=== PATIENT | male | born 1960 | race Caucasian/White ===

== ENCOUNTER → 2024-04-02 09:26 | Outpatient (REF) | payer OTHER, SELFPAY ==
[2024-04-02 10:12] LABS: % Basophils 0.6 % (0-2); % Eosinophils 3.6 % (0-6); % Immature Granulocytes 0.8 % (0-0.5); % Lymphocytes 28.8 % (20.5-51.1); % Monocytes 10.4 % (1.7-9.3); % Neutrophils 55.8 % (42.2-75.2); Absolute Eosinophils 0.2 10^3/uL (0-0.7); Absolute Immature Granulocytes 0.1 10^3/uL (0-0.05); Absolute Lymphocytes 1.8 10^3/uL (1.2-3.4); Absolute Monocytes 0.7 10^3/uL (0.1-0.6); Absolute Neutrophils 3.6 10^3/uL (1.4-6.5); Hematocrit 49.1 % (39.0-52.0); Hemoglobin 16.6 g/dL (13.0-18.0); Mean Corp Hgb Conc. 33.8 g/dL (33.0-37.0); Mean Corpuscular Hgb 30.7 pg (27.0-31.0); Mean Corpuscular Volume 90.9 fL (80.0-94.0); Mean Platelet Volume 10.3 fL (7.4-10.4); Nucleated Red Blood Cells % 0 % (-); Platelet Count 180 10^3/uL (130-400); Red Cell Dist. Width 13.4 % (11.5-14.5); White Blood Cell Count 6.4 10^3/uL (4.8-10.8)
[2024-04-02 10:57] LABS: ALT (SGPT) 17 U/L (0-50); AST (SGOT) 22 U/L (17-59); Albumin 4.5 g/dl (3.5-5.0); Alkaline Phosphatase 55 U/L (38-126); Blood Urea Nitrogen 30 mg/dl (9-20); Calcium 9.8 mg/dl (8.4-10.2); Carbon Dioxide 19 mmol/L (22-30); Chloride 105 mmol/L (98-107); Glucose 147 mg/dl (70-99); HDL Cholesterol 36 mg/dl; LDL Cholesterol, Calculated 90 mg/dl; Potassium 4.4 mmol/L (3.5-5.1); Sodium 138 mmol/L (135-145); Total Cholesterol 176 mg/dl (50-199); Total Protein 7.1 g/dl (6.3-8.2); Triglyceride 254 mg/dl (10-149); Very Low Density Lipoprotein 50 mg/dl (0-30); eGFR > 60.00
== END ==
LOC: REG 09:26
PROVIDERS: ATTENDING PHYSICIAN Internal Medicine Endocrinology, Diabetes & Metabolism; FAMILY PHYSICIAN Family Medicine; REFERRING PHYSICIAN Specialist
DX: E11.21 Type 2 diabetes mellitus with diabetic nephropathy (principal); E11.22 Type 2 diabetes mellitus with diabetic chronic kidney disease; N18.2 Chronic kidney disease, stage 2 (mild); E78.2 Mixed hyperlipidemia
CPT/HCPCS: 36415; 80053; 80061; 83036; 85025

== ENCOUNTER → 2024-09-14 09:17 | Outpatient (REF) | payer OTHER, SELFPAY ==
[2024-09-14 10:14] LABS: % Basophils 0.5 % (0-2); % Eosinophils 2.9 % (0-6); % Immature Granulocytes 1.1 % (0-0.5); % Lymphocytes 30.4 % (20.5-51.1); % Monocytes 9.7 % (1.7-9.3); % Neutrophils 55.4 % (42.2-75.2); Absolute Eosinophils 0.2 10^3/uL (0-0.7); Absolute Immature Granulocytes 0.1 10^3/uL (0-0.05); Absolute Lymphocytes 2.3 10^3/uL (1.2-3.4); Absolute Monocytes 0.7 10^3/uL (0.1-0.6); Absolute Neutrophils 4.2 10^3/uL (1.4-6.5); Hematocrit 46.7 % (39.0-52.0); Hemoglobin 16.2 g/dL (13.0-18.0); Mean Corp Hgb Conc. 34.7 g/dL (33.0-37.0); Mean Corpuscular Hgb 31.8 pg (27.0-31.0); Mean Corpuscular Volume 91.7 fL (80.0-94.0); Mean Platelet Volume 10.5 fL (7.4-10.4); Nucleated Red Blood Cells % 0 % (-); Platelet Count 206 10^3/uL (130-400); Red Blood Cell Count 5.09 10^6/uL (4.70-6.10); Red Cell Dist. Width 12.9 % (11.5-14.5); White Blood Cell Count 7.5 10^3/uL (4.8-10.8)
[2024-09-14 10:28] LABS: Erythrocyte Sed Rate 7 mm/hour (0-20)
[2024-09-14 10:42] LABS: ALT (SGPT) 39 U/L (0-50); AST (SGOT) 30 U/L (17-59); Albumin 4.5 g/dl (3.5-5.0); Alkaline Phosphatase 83 U/L (38-126); Blood Urea Nitrogen 20 mg/dl (9-20); Calcium 9.7 mg/dl (8.4-10.2); Carbon Dioxide 17 mmol/L (22-30); Chloride 107 mmol/L (98-107); Glucose 199 mg/dl (70-99); HDL Cholesterol 41 mg/dl; Potassium 4.5 mmol/L (3.5-5.1); Sodium 141 mmol/L (135-145); Total Bilirubin 0.6 mg/dl (0.2-1.3); Total Cholesterol 162 mg/dl (50-199); eGFR > 60.00
[2024-09-14 10:48] LABS: C-Reactive Protein < 5.00 mg/L (0.0-10.00); Triglyceride 462 mg/dl (10-149)
[2024-09-14 10:51] LABS: Amylase 86 U/L (30-110); Lipase 218 U/L (23-300)
[2024-09-14 11:09] LABS: LDL Cholesterol, Direct 61 mg/dl
[2024-09-14 11:26] LABS: Glycohemoglobin (HgbA1c) 7.6 % (4.0-5.6)
[2024-09-14 11:36] LABS: Microalbumin, Random Urine 1.1 mg/dl (0.6-1.7); Microalbumin/creatinine Ratio 13.6 mg/g
== END ==
LOC: REG 09:17
PROVIDERS: ATTENDING PHYSICIAN Internal Medicine; FAMILY PHYSICIAN Internal Medicine Endocrinology, Diabetes & Metabolism; REFERRING PHYSICIAN Family Medicine
DX: L40.50 Arthropathic psoriasis, unspecified (principal); Z51.81 Encounter for therapeutic drug level monitoring; E11.21 Type 2 diabetes mellitus with diabetic nephropathy; R80.9 Proteinuria, unspecified; E78.2 Mixed hyperlipidemia; E11.22 Type 2 diabetes mellitus with diabetic chronic kidney disease
CPT/HCPCS: 36415; 80053; 80061; 82043; 82150; 82570; 83036; 83690; 83721; 85025; 85652; 86140

== ENCOUNTER → 2025-02-11 11:33 | Outpatient (REF) | payer OTHER, SELFPAY ==
[2025-02-11 12:23] LABS: % Basophils 0.7 % (0-2); % Eosinophils 2.2 % (0-6); % Immature Granulocytes 1.2 % (0-0.5); % Lymphocytes 34.4 % (20.5-51.1); % Monocytes 10.5 % (1.7-9.3); Absolute Eosinophils 0.1 10^3/uL (0-0.7); Absolute Immature Granulocytes 0.1 10^3/uL (0-0.05); Absolute Monocytes 0.6 10^3/uL (0.1-0.6); Hemoglobin 16.6 g/dL (13.0-18.0); Mean Corp Hgb Conc. 35.3 g/dL (33.0-37.0); Mean Corpuscular Hgb 32.3 pg (27.0-31.0); Mean Corpuscular Volume 91.4 fL (80.0-94.0); Mean Platelet Volume 10.1 fL (7.4-10.4); Nucleated Red Blood Cells % 0 % (-); Platelet Count 163 10^3/uL (130-400); Red Blood Cell Count 5.14 10^6/uL (4.70-6.10); Red Cell Dist. Width 12.8 % (11.5-14.5); White Blood Cell Count 5.9 10^3/uL (4.8-10.8)
[2025-02-11 12:39] LABS: Erythrocyte Sed Rate 8 mm/hour (0-20)
[2025-02-11 12:47] LABS: ALT (SGPT) 32 U/L (0-50); AST (SGOT) 22 U/L (17-59); Albumin 4.4 g/dl (3.5-5.0); Alkaline Phosphatase 67 U/L (38-126); Blood Urea Nitrogen 22 mg/dl (9-20); Calcium 9.6 mg/dl (8.4-10.2); Carbon Dioxide 26 mmol/L (22-30); Chloride 106 mmol/L (98-107); Glucose 196 mg/dl (70-99); HDL Cholesterol 38 mg/dl; LDL Cholesterol, Calculated 45 mg/dl; Potassium 4.5 mmol/L (3.5-5.1); Sodium 142 mmol/L (135-145); Total Cholesterol 161 mg/dl (50-199); Total Protein 6.8 g/dl (6.3-8.2); Triglyceride 394 mg/dl (10-149); Uric Acid 7.3 mg/dl (3.5-8.5); Very Low Density Lipoprotein 78 mg/dl (0-30); eGFR > 60.00
[2025-02-11 12:50] LABS: C-Reactive Protein < 5.00 mg/L (0.0-10.00)
== END ==
LOC: REG 11:33
PROVIDERS: ATTENDING PHYSICIAN Internal Medicine; FAMILY PHYSICIAN Family Medicine; REFERRING PHYSICIAN Internal Medicine Cardiovascular Disease
DX: L40.50 Arthropathic psoriasis, unspecified (principal); Z51.81 Encounter for therapeutic drug level monitoring; E78.2 Mixed hyperlipidemia; E11.22 Type 2 diabetes mellitus with diabetic chronic kidney disease; N18.2 Chronic kidney disease, stage 2 (mild); E11.21 Type 2 diabetes mellitus with diabetic nephropathy
CPT/HCPCS: 36415; 80053; 80061; 84550; 85025; 85652; 86140

== ENCOUNTER 2025-04-07 22:49 | Inpatient (IN) | payer OTHER, SELFPAY ==
[2025-04-07 18:35] VITALS: BP 144/84
--- NOTE | 2025-04-07 19:23 | ED.GENMED ---
History of Present Illness
General
Chief Complaint: Abdominal Pain
Source: patient
Time Seen by Provider: 04/07/25 19:10
History of Present Illness
History of Present Illness:
64-year-old presents to the emergency room complaining of pain in the abdomen for the past 5 days. He has diffuse pain but perhaps worse in the upper abdomen. Mild nausea no vomiting. He may have had some loose stools but no significant change in
bowels. Patient states this feels similar to when he had pancreatitis a couple years ago. At that time the patient was drinking 6 or 7 drinks a day. Currently he is drinking 1 or 2 beers a day. Nothing seems to make the pain better or worse. He
denies any fever or chills.
Past History
Past History
ED Past Medical History: CAD, GERD, HTN, Hypercholesterolemia and NIDDM
ED Past Surgical History: Appendectomy, Orthopedic and Other (hernia)
Patient has exhibited threatening behavior?: No
PSI?: No
Social History
Tobacco: Non-smoker
Alcohol: Daily
Drug: None
Personal:
Living: with family
Phy Exam
Physical Exam
Physical Exam:
General: Awake, Alert, Oriented X3. No acute distress.
Vitals: unremarkable
Head: Atraumatic
Eyes: Pupils equal, EOMI
Throat: Airway intact, no exudates
Neck: Trachea midline
Lungs: Clear and equal b/l
Heart: Regular rate, no murmurs
Abd: Soft, tenderness to palpation in the suprapubic region as well as the epigastrium and right upper quadrant, No pulsatile mass
Neuro: Nonfocal
Skin: Warm, dry, no rash
Extremities: pulses equal b/l, no edema
Course
Orders/Labs/Results
Orders:
Orders
04/07/25 19:19
Ketorolac [Toradol] 15 mg IV NOW STA
04/07/25 19:20
Lactated Ringers [Lr] 1,000 ml IV BOLUS
04/07/25 19:21
CT Abd/Pel (IV only)-DH only Urgent
Comment:
Reason For Exam: epigastric abd pain
04/07/25 19:35
B-Hydroxybutyrate Urgent
Comment: ADD ON
Complete Blood Count/With Diff Urgent
Comprehensive Metabolic Panel Urgent
Lipase Urgent
04/07/25 20:02
Urinalysis Reflex To Culture Urgent
Date Specimen was Collected: 04/07/25
Time Specimen was Collected: 20:01
Urine Microscopic Reflex Cult Urgent
04/07/25 20:41
Venous Blood Gas Urgent
%Oxygen/Room Air: ra
04/07/25 21:05
0.9% Sodium Chloride 1000 ml [Nss] 1,000 ml IV BOLUS
0.9% Sodium Chloride 1000 ml [Nss] 1,000 ml IV BOLUS
04/07/25 21:06
Bedside Glucose- Treatment Q1H
IV Insert/Care/Rem.- Treatment PRN
04/07/25 21:08
Add On- LAB Urgent
Tests Added?: beta hydroxybuterate
04/07/25 21:15
Basic Metabolic Panel Q2H
04/07/25 21:41
Reg Insulin 100 Units/100 ml [Novolin R Insulin Infusion] 100 units in 100 ml IV NOW
04/07/25 22:00
KCl 20 Meq/D5.45%Sodchl 1000ML [D5/0.45%NSS with KCL 20 MEQ] 20 meq in 1,000 ml IV 200 mls/hr
04/07/25 23:15
Basic Metabolic Panel Q2H
04/08/25 01:15
Basic Metabolic Panel Q2H
Abnormal Lab Results
04/07/25 04/07/25 04/07/25
19:35 20:02 20:41
WBC 11.7 H 10^3/uL
(4.8-10.8)
RBC 4.26 L 10^6/uL
(4.70-6.10)
MCV 95.5 H fL
(80.0-94.0)
MCH 31.7 H pg
(27.0-31.0)
Abs Immat Gran (auto) 0.2 H 10^3/uL
(0-0.05)
Absolute Neuts (auto) 8.8 H 10^3/uL
(1.4-6.5)
Absolute Monos (auto) 1.0 H 10^3/uL
(0.1-0.6)
Immature Gran % 1.6 H %
(0-0.5)
Lymphocytes % 13.5 L %
(20.5-51.1)
VBG pH 7.29 L
(7.32-7.43)
VBG pCO2 25 L mmHg
(35-48)
VBG pO2 128 H mmHg
(30-50)
VBG HCO3 12.0 L mmol/L
(22-27)
Sodium 133 L mmol/L
(135-145)
Potassium 5.3 H mmol/L
(3.5-5.1)
Carbon Dioxide 6 L* mmol/L
(22-30)
Glucose 269 H mg/dl
(70-99)
Total Bilirubin 1.5 H mg/dl
(0.2-1.3)
Lipase 3073 H* U/L
(23-300)
Urine Ketones 3+ A
(Negative)
Ur Occult Blood Reflex 1+ A
(Negative)
Urine RBC 3-6 A /HPF
(0-2)
Urine Bacteria (Reflex) Few A
(Negative)
Urine Glucose 4+ A
(Negative)
Urine Albumin (Reflex) 2+ A
(Neg - Trace)
POC Glucose
04/07/25
21:24
WBC
RBC
MCV
MCH
Abs Immat Gran (auto)
Absolute Neuts (auto)
Absolute Monos (auto)
Immature Gran %
Lymphocytes %
VBG pH
VBG pCO2
VBG pO2
VBG HCO3
Sodium
Potassium
Carbon Dioxide
Glucose
Total Bilirubin
Lipase
Urine Ketones
Ur Occult Blood Reflex
Urine RBC
Urine Bacteria (Reflex)
Urine Glucose
Urine Albumin (Reflex)
POC Glucose 236 H mg/dl
(70-99)
04/07/25 19:35
Vital Signs
Initial and Last Documented VS:
Initial Vital Signs
Temp Pulse Resp BP Pulse Ox
97.6 F 89 20 144/84 98
04/07/25 18:35 04/07/25 18:35 04/07/25 18:35 04/07/25 18:35 04/07/25 18:35
Last Documented Vital Signs
Temp Pulse Resp BP Pulse Ox
97.6 F 89 20 112/64 94
04/07/25 18:35 04/07/25 18:35 04/07/25 18:35 04/07/25 20:11 04/07/25 20:45
MDM/Problems Addressed
Differential Diagnosis Includes:
Pancreatitis, acute cholecystitis, gastritis
MDM/Problems Addressed:
Patient presents with fairly diffuse abdominal pain, nausea. He does not look toxic. However his labs are significantly abnormal. A CBC report was delayed because the patient has severe Evie EMEA. Chemistries show mildly elevated potassium of
5.3, markedly low bicarb at 6. His anion gap is 21. Leukos is elevated at 269 but not as high as 1 might expect. Lipase is elevated at 3073 I would not expect pancreatitis to cause these significant chemistry abnormalities particularly given the
patient does not appear acutely ill. Suspect there is a component of DKA despite his relatively low glucose. I was able to look up the patient's chart on [facility]. It does appear that he takes Jardiance. This would coincide with DKA at a relatively
low glucose. Patient also informing that he stopped taking his Repatha.
Chronic conditions affecting care: DM, HTN and Other (Hypertriglyceridemia)
*Radiology
Radiology exam reviewed: radiology read reviewed
*Pulse Oximetry
Patient hypoxic: no
*Critical Care Note
Total Time (30-74mins, 75-104mins- exclusive of procedures): 44 min
comment:
Critical care statement: A total of 44 minutes of critical care time was provided for this patient. This includes management of unstable vital signs, evaluation of the patient at bedside, reviewing the patient's pertinent medical records, discussion
with consultants, review of old EKGs and review of pertinent medical records. This time with separate from time utilized to perform the aforementioned documented procedures
ED Attending Note
-
Portions of this chart may have been created with voice recognition software.� Occasional wrong word or��sound alike� substitutions may have occurred due to the inherent limitations of voice recognition software.
Discharge Plan
Departure
Patient Disposition: Admit
Date of Disposition: 04/07/25
Time of Disposition: 21:54
Admit to: ICU
Presentation/result/management discussed w/ accepting MD/DO: Hospitalist
Condition: Serious
Discharge Problem:
DKA (diabetic ketoacidosis), Hyperlipemia, Pancreatitis, acute
Prescriptions:
No Action
allopurinol 300 MG tablet
300 mg PO DAILY
aspirin 81 MG tablet,delayed release (DR/EC)
81 mg PO HS Qty: 0 0RF
Rx Instructions:
RESUME WHEN BID DOSING IS D/C
multivitamin Tablet
1 tab PO DAILY
ezetimibe [Zetia] 10 mg Tablet
10 mg PO DAILY
omega-3 fatty acids-fish oil 684-1,200 mg Capsule,Delayed Release(Dr/Ec)
1 cap PO DAILY
ustekinumab [Stelara] 90 mg/mL Syringe
90 mg SC Q12W
omeprazole 20 mg Capsule,Delayed Release(Dr/Ec)
20 mg PO QPM
sodium bicarbonate 650 mg Tablet
325 mg PO TID 14 Days Qty: 21 0RF
insulin glargine [Lantus Solostar U-100 Insulin] 100 unit/mL (3 mL) insulin pen
8 unit SC HS 30 Days Qty: 2.4 0RF
lisinopril 20 mg tablet
20 mg PO DAILY
celecoxib 100 mg capsule
100 mg PO BID
tadalafil 20 mg tablet
20 mg PO PRN PRN (Reason: Erectile Dysfunction)
Jardiance 25 mg tablet
25 mg PO DAILY
Repatha SureClick 140 mg/mL pen injector
140 mg SC Q2W
Ozempic 1 mg/dose (4 mg/3 mL) pen injector
1 mg SC WEEKLY
Referrals:
Buddy Scott DO [Family Provider] -
Interventions
Interventions:
*General Assessment Last Done: 04/07/25 18:35
Discharge Date and Time
Print Language: TURKISH
[2025-04-07] MEDS: TORADOL 15 MG IV (19:56)
[2025-04-07] MEDS: LR 1000 IV (19:57)
[2025-04-07 20:11] VITALS: BP 112/64
[2025-04-07 20:12] LABS: Urine Albumin 2+ (Neg - Trace); Urine Bilirubin Negative (Negative); Urine Character Clear (Clear); Urine Color Yellow; Urine Glucose 4+ (Negative); Urine Ketone 3+ (Negative); Urine Leukocyte Negative (Negative); Urine Nitrite Negative (Negative); Urine Occult Blood 1+ (Negative); Urine Specific Gravity 1.015 (<1.030); Urine Urobilinogen Negative (Neg - 1+)
[2025-04-07 20:16] LABS: ALT (SGPT) 19 U/L (0-50); AST (SGOT) 30 U/L (17-59); Albumin 4.4 g/dl (3.5-5.0); Alkaline Phosphatase 65 U/L (38-126); Blood Urea Nitrogen 13 mg/dl (9-20); Calcium 8.5 mg/dl (8.4-10.2); Carbon Dioxide 6 mmol/L (22-30); Chloride 106 mmol/L (98-107); Glucose 269 mg/dl (70-99); Potassium 5.3 mmol/L (3.5-5.1); Sodium 133 mmol/L (135-145); Total Bilirubin 1.5 mg/dl (0.2-1.3); Total Protein 7.6 g/dl (6.3-8.2); eGFR > 60.00
[2025-04-07 20:27] LABS: Lipase 3073 U/L (23-300)
[2025-04-07 20:38] LABS: Urine Bacteria Few (Negative); Urine Squamous Cell 0-2 /LPF (Few); Urine White Cell 0-2 /HPF (0-5)
[2025-04-07 20:49] LABS: Venous Blood Gas B.E. -12.5 mmol/L (-4 to +4); Venous Blood Gas O2 Sat % 98.6 %; Venous Blood Gas pCO2 25 mmHg (35-48); Venous Blood Gas pH 7.29 (7.32-7.43); Venous Blood Gas pO2 128 mmHg (30-50)
[2025-04-07 21:22] LABS: Hematocrit 40.7 % (39.0-52.0); Mean Corpuscular Volume 95.5 fL (80.0-94.0); Red Blood Cell Count 4.26 10^6/uL (4.70-6.10); White Blood Cell Count 11.7 10^3/uL (4.8-10.8)
[2025-04-07 21:23] LABS: Mean Corp Hgb Conc. 33.2 g/dL (33.0-37.0); Mean Corpuscular Hgb 31.7 pg (27.0-31.0); Red Cell Dist. Width 14.4 % (11.5-14.5)
[2025-04-07 21:24] LABS: Hemoglobin 13.5 g/dL (13.0-18.0)
[2025-04-07 21:24] LABS: Glucose - Point of Care 236 mg/dl (70-99)
[2025-04-07] MEDS: NSS 1000 IV (21:31)
[2025-04-07 21:38] VITALS: BMI 33.9
[2025-04-07 21:42] LABS: % Basophils 0.4 % (0-2); % Immature Granulocytes 1.6 % (0-0.5); % Lymphocytes 13.5 % (20.5-51.1); % Monocytes 8.5 % (1.7-9.3); Absolute Basophils 0.1 10^3/uL (0-0.2); Absolute Eosinophils 0.1 10^3/uL (0-0.7); Absolute Immature Granulocytes 0.2 10^3/uL (0-0.05); Absolute Lymphocytes 1.6 10^3/uL (1.2-3.4); Absolute Neutrophils 8.8 10^3/uL (1.4-6.5); Nucleated Red Blood Cells % 0 % (-)
[2025-04-07 22:00] VITALS: BP 123/70
[2025-04-07] MEDS: NOVOLIN R INSULIN INFUSION 100 IV (22:04)
[2025-04-07] MEDS: D5/0.45%NSS with KCL 20 MEQ IV (22:12)
--- NOTE | 2025-04-07 22:39 | HPS.HSE ---
Family Physician
-
Family Physician: Buddy Scott
Chief Complaint
-
Abdominal Pain
History of Present Illness
Patient is 64 y/o male past medical history of coronary artery disease, hypertension, hyperlipidemia, diabetes mellitus, psoriatic arthritis and obstructive sleep apnea who presents with abdominal pain. Patient reports increasing abdominal
discomfort over the past 5 days. He describes diffuse abdominal discomfort slightly worse in the upper abdomen. He reports nausea, but no vomiting. He reports symptoms are similar to when he had pancreatitis a few years ago. Review of those
records indicate patient was drinking 6 beers daily and also had significantly elevated triglyceride levels. Patient states he is drinking less but still drinking. He also reports he stopped his Repatha about 6 weeks ago, as well as his Ozempic.
He denies fevers, sweats or chills.
Medical History
Past Medical History
Past Medical History: Reports Other
Additional Past Medical History:
Coronary Artery Disease s/p Stent
Diabetes Mellitus, Type II
Essential Hypertension
Hyperlipidemia
Psoriatic Arthritis
Obstructive Sleep Apnea
Past Surgical History: Reports Other
Additional Past Surgical History:
Umbilical Hernia Repair
Left inguinal Hernia Repair
Appendectomy
Left Kidney Stone Extraction
Right Partial knee Replacement
Left Ankle Surgery
Social History
Tobacco: Former Smoker
Alcohol: Daily (3 beers)
Family History
Family History: Not pertinent
Allergies / Home Medications
Allergies reflects when Allergies were last updated in [facility].
Home Medications with original date entered in [facility]
Allergy/Medication List:
Allergies
Allergy/AdvReac Type Severity Reaction Status Date / Time
lactose Allergy INTOLERANT Verified 04/07/25 21:36
latex Allergy Rash Verified 04/07/25 18:35
Gfxhaae-VPQ-LtB Reductase Allergy SEE BELOW Verified 04/07/25 18:35
Inhibitor
[Wdgkpsc-Yby-Lmx Reductase
Inhibitor]
Home Medications
allopurinol 300 mg tablet 150 mg PO DAILY Gout 09/20/10
omeprazole 20 mg capsule,delayed release 20 mg PO QPM Gastrointestinal Issue 08/07/23
ustekinumab 90 mg/mL subcutaneous syringe (Stelara) 90 mg SC Q12W PSORIATIC ARTHRITIS 08/07/23
celecoxib 100 mg capsule 100 mg PO BID 04/07/25
empagliflozin 25 mg tablet (Jardiance) 25 mg PO DAILY 04/07/25
lisinopril 5 mg tablet 5 mg PO DAILY 04/07/25
tadalafil 20 mg tablet 20 mg PO PRN PRN Erectile Dysfunction 04/07/25
Review of Systems
-
History Source: Patient
A 12 point ROS was completed and negative except as noted: Yes
Constitutional: Denies Fever or Chills
Respiratory: Denies Cough or Trouble Breathing
Cardiac: Denies Chest Pain or Palpitations
Abdomen/GI: Reports Abdominal Pain and Nausea; Denies Vomiting, Diarrhea or Constipated
Physical Exam
Vital Signs
Vital Signs
Temp Pulse Resp BP Pulse Ox
97.6 F 89 20 112/64 94
04/07/25 18:35 04/07/25 18:35 04/07/25 18:35 04/07/25 20:11 04/07/25 20:45
Physical Exam
General: Comfortable and Conversant
HEENT: Anicteric and Moist mucous membranes
Respiratory: Clear and Non Labored Respirations
Cardiac: S1/S2 and Regular Rhythm
GI: Soft and Tender (Mild epigastric without rebound or guarding)
Rectal: Deferred by Provider
Musculoskeletal: No Clubbing, No Cyanosis and No Edema
Skin: Warm and Dry
Neuro: Awake, Alert, Oriented and Nonfocal/grossly intact
Psych: Calm
Laboratory Results
-
04/07/25 19:35
Laboratory Results
Laboratory Tests
04/07/25
19:35
Sodium 133 L
Potassium 5.3 H
Chloride 106
Carbon Dioxide 6 L*
BUN 13
Creatinine 0.9
Glucose 269 H
Total Bilirubin 1.5 mg/dl (0.2-1.3) H 04/07/25 19:35
AST 30 U/L (17-59) 04/07/25 19:35
ALT 19 U/L (0-50) 04/07/25 19:35
Alkaline Phosphatase 65 U/L (38-126) 04/07/25 19:35
Lipase 3073 U/L (23-300) H* 04/07/25 19:35
Data Reviewed
-
CT Scan: Report Reviewed by me
Lab Data: Labs Reviewed by me
Old Records: Reviewed
Impression/Plan
-
Diabetic Ketoacidosis, likely triggered by Pancreatitis
-Admit to ICU on insulin drip
-Monitor BMP and bedside glucose
-Continue IVFs
-Hold Jardiance
Pancreatitis, suspect related to elevated triglycerides as patient stopped Repatha about 6 weeks ago
-Check Triglyceride Level
-Continue NPO/IVFs
Coronary Artery Disease s/p Stent in 2019
-Resume low dose aspirin
Essential Hypertension
-Continue lisinopril
Hyperlipidemia
-Patient is intolerant to statin
-Stopped Repatha about 6 weeks ago
Psoriatic Arthritis
-Patient maintained on Stelara as outpatient
Obstructive Sleep Apnea
-Continue home CPAP
DVT proph: Lovenox
Code Status: Full Code
--- NOTE | 2025-04-07 22:41 | W.PN.UPDATE ---
Update Note
Progress Note Update
Patient seen in conjunction with ASSET ADMINISTRATOR. I agree defined/M0. I concur with assessment plan listed otherwise.
Briefly, this is a 84-year-old with past medical history significant for type 2 diabetes, GERD, hypertension, hyperlipidemia, recurrent pancreatitis thought to be secondary to hypertriglyceridemia and alcohol use who presents to the emergency
department with 4 days of abdominal pain. He denies vomiting. He reports mild nausea. He states he is overall able to tolerate p.o. On questioning patient did endorse to drinking approximately 3 bottles of beer in the evenings this week. He
states is less than his usual amount. He reports that he he stopped taking the Repatha about 6 weeks ago because he felt that he was taking too many medications. He also reports some noncompliance with his insulin regimen having stopped taking
injectables recently. He does not check his blood glucose regularly. Eventually came to the emergency department due to abdominal pain. He denies any diarrhea. He denies any fevers or chills.
In the emergency department he was afebrile, blood pressure was 112/64 with a pulse rate of 89 and was satting 100% on room air.
CBC was unremarkable.
Electrolyte close notable for anion gap acidosis with a bicarb of 6, BUN and creatinine were completely normal. Lipase was elevated at 3000, LFTs were otherwise normal. Blood glucose was 269.
CT of the abdomen pelvis consistent with acute pancreatitis without complications including no evidence of fluid collection or necrosis
Assessment and plan
Patient presenting with abdominal pain and found to have acute pancreatitis. DKA. This is likely secondary to noncompliance with both DAYANA triglyceride medication as well as disease alcohol cessation. He is also not entirely compliant with his
diabetic regimen. In the past he had triglycerides over 3000 which was treated with insulin drip and eventually being placed on Repatha.
DKA - pancreatitis as likely etiology
- admit to icu
- npo except meds/ice chips
- DKA protocol, currently needs D5 1/2 NS + 20 Kcl
- bmp q 4 hours
- fsg q 1 hour
Pancreatitis - suspect secondary to hypertriglyceridemia and possibly etoh
- check triglycerides
- npo as above
- pain control
- IV fluids
- monitor trig levels, goal is < 1000, may need to continue insulin gtt at high rate for goal
ZENOBIA
- home cpap
DVT PPX - lovenox sq
Code status - Full code
[2025-04-07 22:50] LABS: Triglycerides > 2625 mg/dl (10-149)
[2025-04-07] MEDS: D5/0.45%NSS with KCL 20 MEQ 1000 IV (22:56)
[2025-04-07 23:16] LABS: Glucose - Point of Care 185 mg/dl (70-99)
[2025-04-08] VITALS (22 sets, daily range): BP systolic 110–141; BP diastolic 55–87; BMI 33.5
[2025-04-08 00:32] LABS: Glucose - Point of Care 185 mg/dl (70-99)
[2025-04-08] MEDS: DILAUDID 0.25 MG IV ×3 (01:10→22:25)
[2025-04-08 01:25] LABS: Glucose - Point of Care 195 mg/dl (70-99)
--- NOTE | 2025-04-08 01:48 | PTCARENOTE ---
patient received from ER, with pancreatitis and DKA, BG 185 and on 2 units insulin gtt. patient offers mild complaints of abdominal pain, diffuse throughout abdomen, 5/10
patient is continent of bowel and bladder, ast x 1 to bathroom, no difficulty voiding.
NPO currentlly, IVF and insulin gtt running without issue,
new IV placed in RFA, as patient has L AC and keeps occluding with bending his arm to use his phone
hourly bg checks per protocol
[2025-04-08 02:44] LABS: Glucose - Point of Care 193 mg/dl (70-99)
[2025-04-08 03:50] LABS: Hematocrit 39.7 % (39.0-52.0); Hemoglobin 15.2 g/dL (13.0-18.0); Mean Corp Hgb Conc. 38.3 g/dL (33.0-37.0); Mean Corpuscular Hgb 35.4 pg (27.0-31.0); Mean Corpuscular Volume 92.5 fL (80.0-94.0); Mean Platelet Volume 11.4 fL (7.4-10.4); Platelet Count 118 10^3/uL (130-400); Red Blood Cell Count 4.29 10^6/uL (4.70-6.10); Red Cell Dist. Width 13.3 % (11.5-14.5); White Blood Cell Count 10.8 10^3/uL (4.8-10.8)
[2025-04-08 03:50] LABS: Glucose - Point of Care 217 mg/dl (70-99)
[2025-04-08 04:19] LABS: ALT (SGPT) 14 U/L (0-50); AST (SGOT) 17 U/L (17-59); Albumin 3.5 g/dl (3.5-5.0); Alkaline Phosphatase 45 U/L (38-126); Direct Bilirubin 0.2 mg/dl (0.0-0.4); Total Bilirubin 0.9 mg/dl (0.2-1.3); Total Protein 6.1 g/dl (6.3-8.2)
--- NOTE | 2025-04-08 04:19 | PTCARENOTE ---
patient resting comfortably, insulin gtt increased to 3 for bg of 218, patient finally able to sleep ,prn pain medication given for 'shooting abdominal pain' -
[2025-04-08 04:20] LABS: Blood Urea Nitrogen 10 mg/dl (9-20); Calcium 8.2 mg/dl (8.4-10.2); Carbon Dioxide 13 mmol/L (22-30); Chloride 110 mmol/L (98-107); Estimated Creatinine Clearance 108 ml/min; Glucose 184 mg/dl (70-99); Potassium 4.2 mmol/L (3.5-5.1); Sodium 138 mmol/L (135-145); eGFR > 60.00
[2025-04-08] MEDS: D5/0.45%NSS with KCL 20 MEQ 1000 IV ×5 (04:28→22:24)
[2025-04-08 04:34] LABS: Lipase 3209 U/L (23-300)
[2025-04-08 04:42] LABS: Glucose - Point of Care 215 mg/dl (70-99)
[2025-04-08 04:47] LABS: Triglycerides > 2625 mg/dl (10-149)
[2025-04-08 06:03] LABS: Glucose - Point of Care 161 mg/dl (70-99)
[2025-04-08 06:42] LABS: Glucose - Point of Care 179 mg/dl (70-99)
--- NOTE | 2025-04-08 07:12 | CON.INTV ---
Addendum entered and electronically signed by Artie Lira MD 04/09/25 14:08:
04/10.
- Patient has been transitioned to subcu insulin per primary team
- Patient transferring out of ICU
- [facility] [employer] service will sign off, please call as needed
Addendum entered and electronically signed by Artie Lira MD 04/08/25 09:36:
- Patient still appears dry on exam with dry oral mucosa and dark urine
- Give another bolus of Ringer lactate 1 L stat, continue D5 with half-normal saline and potassium at 200 cc an hour
- Patient no longer nauseous, will allow taking p.o. water and ice chips
Original Note:
Consultation
Consultation Request
Date/Time Consultation Requested: 04/07/2025
Date/Time Consultation Performed: 04/08/2025
Requesting Provider: Ivet Alexander
Performing Provider: Artie Lira
Reason for Consultation: DKA
Medical History
-
Chief Complaint: Abdominal pain
History of Present Illness:
Patient is a 64-year-old gentleman with known history of diabetes as well as pancreatitis in the past related to hypertriglyceridemia. Patient also has a history of alcohol use. He presents with last few days of abdominal pain subsequently worse
with nausea but without any vomiting. Workup in the emergency room showed metabolic acidosis consistent with DKA as well as significantly elevated lipase suggestive of pancreatitis. Patient was aggressively volume resuscitated followed by
initiation of insulin infusion and was admitted to ICU. [facility] [employer] consult was requested for further input.
Past Medical History: Reports Other
Additional Past Medical History:
Coronary Artery Disease s/p Stent
Diabetes Mellitus, Type II
Essential Hypertension
Hyperlipidemia
Psoriatic Arthritis
Obstructive Sleep Apnea
Past Surgical History: Reports Other
Additional Past Surgical History:
Umbilical Hernia Repair
Left inguinal Hernia Repair
Appendectomy
Left Kidney Stone Extraction
Right Partial knee Replacement
Left Ankle Surgery
Social History
Tobacco: Former Smoker
Alcohol: Daily (3 beers)
Family History
Family History: Not pertinent
Allergies / Home Medications
Allergies
Allergy/AdvReac Type Severity Reaction Status Date / Time
lactose Allergy INTOLERANT Verified 04/07/25 21:36
latex Allergy Rash Verified 04/07/25 18:35
Nrcsvrm-UNF-JtN Reductase Allergy SEE BELOW Verified 04/07/25 18:35
Inhibitor
[Jsdehyf-Jkj-Nnv Reductase
Inhibitor]
Home Medications
�Medication �Instructions �Recorded �Confirmed �Last Taken �Type
allopurinol 300 mg tablet 150 mg PO DAILY Gout 09/20/10 04/07/25 10/03/19 08:00 History
omeprazole 20 mg capsule,delayed 20 mg PO QPM Gastrointestinal Issue 08/07/23 04/07/25 Unknown History
release
ustekinumab 90 mg/mL subcutaneous 90 mg SC Q12W PSORIATIC ARTHRITIS 08/07/23 04/07/25 Unknown History
syringe (Stelara)
celecoxib 100 mg capsule 100 mg PO BID 04/07/25 04/07/25 Unknown History
empagliflozin 25 mg tablet 25 mg PO DAILY 04/07/25 04/07/25 Unknown History
(Jardiance)
lisinopril 5 mg tablet 5 mg PO DAILY 04/07/25 04/07/25 Unknown History
tadalafil 20 mg tablet 20 mg PO PRN PRN Erectile 04/07/25 04/07/25 Unknown History
Dysfunction
Review of Systems
-
Hematologic/Lymphatic: Other (All 14 systems reviewed and negative except as stated above in the history of present illness. Feels thirsty)
Vitals / Labs / Diagnostic Testing
Vital Signs
Temp Pulse Resp BP Pulse Ox
97.6 F 68 27 130/74 93
04/07/25 18:35 04/08/25 06:00 04/08/25 06:00 04/08/25 06:00 04/08/25 06:00
Lab Data
04/08/25 03:30
Diagnostic Testing:
Physical Exam
-
HEENT: Normocephalic and Other (Somewhat dry oral mucosa)
Cardiovascular: S1/S2
Respiratory: Clear
GI: Soft
Neurology: Awake and Alert
Skin: Warm
General: Comfortable
Assessment
-
#1. Acute Pancreatitis, due to hypertriglyceridemia. Significantly elevated lipase on admission, more than 3000 along with evidence of pancreatitis on CT scan with symptoms
- Continue IV fluids D5/half-normal with potassium along with insulin infusion, currently IV fluids at 200 mL/h
- Follow-up triglyceride levels in a.m.
- Continue insulin infusion until triglycerides at least below 1000
- Counseled patient regarding need for insulin as well as antihypertriglyceridemic medications long-term to prevent these episodes
#2. DKA with h/o DM
- VBG 7.29, 25.
- Serum bicarb improving from 6, most recently is 13. Potassium at 4.2. BUN/creatinine unremarkable. Triglyceride noted to be more than 2600
- Continue D5 half-normal with potassium along with insulin infusion
- Serial POCT, BMP, magnesium and phosphorus
- Even if anion gap closes, will continue insulin infusion with dextrose until triglycerides are below thousand
#3. h/o CAD s/p PCI in 2019
- No chest pain reported
-Patient reports being allergic to statins
-Does not take aspirin at home
-Agreeable to take aspirin 81 mg.
#4. HTN
#5. Hypertriglyceridemia.
- Counseled patient that excellent blood sugar control with insulin therapy as well as ant-ihypertriglyceridemic agents are critical to control elevated triglycerides to prevent future attacks of pancreatitis.
- Patient seems skeptical about efficacy of these therapies
#6. h/o ZENOBIA
- Home CPAP
DVT prophylaxis Lovenox
Critical Care time 62 mins -- The patient is admitted for acute critical illness for the treatment of vital organ failure and/or prevention of further life-threatening conditions. Total care includes time spent in review of history, physical exam,
medications, hemodynamic/ventilator parameters, laboratory data, imaging and discussion with house staff, pharmacy, respiratory therapy, gastrointestinal technician, and nursing.
Data:
CT Abd/Pelvis 03/2025: CT findings compatible with pancreatitis involving the head of the pancreas. No evidence for macroscopic pancreatic necrosis. No evidence of a focal collection.
Thickening of the wall the second portion of the duodenum which is likely reactive duodenitis.
Coronary artery calcifications are seen. Please correlate with symptoms of and risk factors for coronary artery disease, with further workup as clinically appropriate.
Fatty infiltration of the liver.
Two 2 mm nephroliths in the lower pole the left kidney. No evidence for ureteral calculus.
Nuclear stress test 03/2022: Not suggestive of ischemia
Cardiac Cath 2019: 1. Successful stenting of the proximal to mid LAD with a 3.0 x 38 mm Xience Lynne stent that was postdilated with a 3.5 mm noncompliant balloon to 16 javad in the proximal and midportion of the stent and to 12 javad on the distal
portion of the stent
2. The mid circumflex stenosis was not hemodynamically significant with the iFR measuring serially at 1.02
3. Preserved LV systolic function
--- NOTE | 2025-04-08 07:20 | W.PN.HOSP.TC ---
Addendum entered and electronically signed by Maryanne Magaña MD 04/08/25 12:34:
I saw and evaluated the patient independently. I reviewed the resident�s note and agree with findings and plan as documented by Dr. Fritz.
GENERAL: well developed, well nourished, male in no apparent distress
HEENT: NC/AT--no O2 requirements
HEART: regular rate and rhythm, +S1, +S2
LUNGS : clear to auscultation bilaterally
ABDOM: soft, nontender, nondistended, + bowel sounds
EXT: no cyanosis, clubbing, or edema
NEUROLOGIC: grossly intact
acute AGAP metabolic acidosis--multifactorial due to Diabetic Ketoacidosis (likely triggered by Pancreatitis), alcoholic ketoacidosis, pancreatitis--cont ICU--apprec float tender--cont insulin drip, adjust IVF (include dextrose if needed)--NPO except
water--hourly accuchecks, Q4H BNPs--agree with holding Jardiance--follow AGAP--check HGB U0H--ayn need insulin--states he stopped his Ozempic
Acute Pancreatitis, suspect related to elevated triglycerides as patient stopped Repatha about 6 weeks ago--cont insulin (high doses may help reduce triglycerides)--cont aggressive IVF--NPO--pain control
HLD--with elevated triglycerides--needs to restart Repatha--not on statins--will need low fat, diabetic diet when allowed to take PO
ETOH use--admits to 3 beers daily--cont MSAS--no signs of withdrawal
Coronary Artery Disease s/p Stent in 2019--Resume low dose aspirin
Essential Hypertension--Continue lisinopril
Psoriatic Arthritis--Patient maintained on Stelara as outpatient
Obstructive Sleep Apnea--Continue home CPAP
DVT proph-- Lovenox
Code Status-- Full Code
Original Note:
Today's Communication/Plan
-
.
Assessment / Plan
Assessment / Plan
Assessment:
64yo M pmh CAD, HTN, HLD, NIDDM, GERD, psoriatic arthritis, ZENOBIA who was admitted for recurrent pancreatitis and DKA. Pt reports stopping repatha and his ozempic 6 weeks ago. Lipase 3000 elevated, AG (21) metabolic acidosis
Plan:
DKA
NIDDM
AGMA
- likely secondary to pancreatitis and poor compliance w NIDDM regimen
- BHB 7.3
- u/a: ketonuria
- NPO
- DKA protocol
- BMP q4h
- accuchecks q1h
Recurrent pancreatitis
- likely secondary to hypertriglyceridemia vs etoh use
- triglcyerides >2625
- pain control
- antiemetics
- IVF
Alcohol use disorder
- cessation counseling
ZENOBIA
- home CPAP
Psoriatic arthritis
- hold stelara
GERD
- cont ppi
HTN
- cont home lisinopril
Gout
- cont home allopurinol
Diet: NPO
DVT ppx: lovenox
Code status: FULL CODE
Anticipated Discharge: > 48 hours
Subjective/Interval History
-
Date of Service: April 08, 2025
Pt is a 64yo M [facility] CAD, HTN, HLD, NIDDM, GERD, psoriatic arthritis, ZENOBIA who presented to [facility] ED for abdominal pain x5 days. Pain is diffuse, but worse in the upper abdomen. States pain is similar to when he had pancreatitis a couple of years ago.
Pt reports stopping repatha and his ozempic 6 weeks ago. Lipase 3000 elevated, AG (21) metabolic acidosis, TG>2625
Objective Data
-
Labs:
Laboratory Results
04/07/25 04/07/25 04/07/25
19:35 21:15 23:15
WBC 11.7 H
Hgb 13.5
Hct 40.7
Plt Count
Sodium 133 L Cancelled Cancelled
Potassium 5.3 H Cancelled Cancelled
Chloride 106 Cancelled Cancelled
Carbon Dioxide 6 L* Cancelled Cancelled
BUN 13 Cancelled Cancelled
Creatinine 0.9 Cancelled Cancelled
Glucose 269 H Cancelled Cancelled
Calcium 8.5 Cancelled Cancelled
Total Bilirubin 1.5 H
AST 30
ALT 19
Alkaline Phosphatase 65
04/08/25 04/08/25 04/08/25
01:15 03:30 03:30
WBC 10.8
Hgb 15.2
Hct 39.7
Plt Count 118 L
Sodium Cancelled 138 Cancelled
Potassium Cancelled 4.2
Chloride Cancelled
Carbon Dioxide Cancelled
BUN Cancelled
Creatinine Cancelled
Glucose Cancelled
Calcium Cancelled
Total Bilirubin
AST
ALT
Alkaline Phosphatase
04/08/25 04/08/25 04/08/25
03:30 03:30 03:30
WBC
Hgb
Hct
Plt Count
Sodium
Potassium Cancelled
Chloride 110 H Cancelled
Carbon Dioxide 13 L* Cancelled
BUN 10
Creatinine
Glucose
Calcium
Total Bilirubin
AST
ALT
Alkaline Phosphatase
04/08/25 04/08/25 04/08/25
03:30 03:30 03:30
WBC
Hgb
Hct
Plt Count
Sodium
Potassium
Chloride
Carbon Dioxide
BUN Cancelled
Creatinine 0.8 Cancelled
Glucose 184 H Cancelled
Calcium 8.2 L
Total Bilirubin
AST
ALT
Alkaline Phosphatase
04/08/25 04/08/25 04/08/25
03:30 08:00 12:00
WBC
Hgb
Hct
Plt Count
Sodium Pending Pending
Potassium Pending Pending
Chloride Pending Pending
Carbon Dioxide Pending Pending
BUN Pending Pending
Creatinine Pending Pending
Glucose Pending Pending
Calcium Cancelled Pending Pending
Total Bilirubin 0.9
AST 17
ALT 14
Alkaline Phosphatase 45
04/08/25 04/08/25
16:00 20:00
WBC
Hgb
Hct
Plt Count
Sodium Pending Pending
Potassium Pending Pending
Chloride Pending Pending
Carbon Dioxide Pending Pending
BUN Pending Pending
Creatinine Pending Pending
Glucose Pending Pending
Calcium Pending Pending
Total Bilirubin
AST
ALT
Alkaline Phosphatase
Vital Signs:
Vital Signs
Temp Pulse Resp BP Pulse Ox
97.6 F 75 20 137/72 97
04/07/25 18:35 04/08/25 07:18 04/08/25 07:18 04/08/25 07:18 04/08/25 07:18
I&O
04/07/25 04/08/25 04/09/25
06:59 06:59 06:59
Intake Total /
Output Total 1410 / 1410
Balance -1410 / -1410
Review of Systems
-
History Source: Patient
Constitutional: Reports No Symptoms
EENT: Reports No Symptoms Reported
Respiratory: Reports No Symptoms
Cardiac: Reports No Symptoms
Abdomen/GI: Reports Abdominal Pain (mild)
Musculoskeletal: Reports No Symptoms
Skin: Reports No Symptoms
Neuro: Reports No Symptoms
Physical Exam
-
General: Well Developed, Well Nourished and Comfortable
HEENT: Normocephalic and Atraumatic
Respiratory: Clear to Auscultation and Non Labored Respirations
Cardiac: Regular Rhythm and S1/S2
GI: Soft, Nondistended, Normal Bowel Sounds and Tender (epigastric)
Musculoskeletal: No Clubbing, No Cyanosis and No Edema
Skin: Warm
Neuro: Awake, Alert and Oriented
Psych: Calm
[2025-04-08 07:32] LABS: Glucose - Point of Care 175 mg/dl (70-99)
--- NOTE | 2025-04-08 07:36 | PTCARENOTE ---
Updated assessment, vital signs ongoing and as documented. Follow up technical specialist consult. IVF, NPO, continue accu data and lab trends as ordered. Noted prolonged times for results secondary to lab value abnormalities. VSS, patient with dull
abdominal pain, c/c of hunger, and ambulating room/voids standing. Will continue lab trends, present Gap for 0300 15/corrected with albumin 16.3. Continue to follow up with technical specialist team.
[2025-04-08] MEDS: ASPIR LOW (ENTERIC COATED) 81 MG PO (08:17)
[2025-04-08] MEDS: ZESTRIL 5 MG PO (08:18)
[2025-04-08] MEDS: ZYLOPRIM 150 MG PO (08:18)
[2025-04-08 09:30] LABS: Glucose - Point of Care 203 mg/dl (70-99)
--- NOTE | 2025-04-08 09:57 | CM ---
Addendum entered by Darlene Arias 04/11/25 15:27:
Per patient no MC and did not want to complete IMM on 04/09/25.
Original Note:
Patient seen at bedside in ICU. Patient stated that he was living with family and that he has a CPAP machine at home that he does use. Patient stated that he has been reducing his medications and he did not want to take so much. Patient denied
issues with cost of medication. Patient declined referral for alcohol treatment stating he would reduce his alcohol intake to zero and that was that. Patient indicated that he was driving and that his PCP recently retired and he was reassigned in
the group. Patient most recently saw PCP one month ago. Patient uses the [facility] in [place]. Patient indicated that he was independent of ADL's and IADL's. CM will continue to follow for discharge planning needs.
Plan;home with VN vs home with no needs.
[2025-04-08] MEDS: LR 1000 IV (10:02)
[2025-04-08 11:23] LABS: Glucose - Point of Care 169 mg/dl (70-99)
--- NOTE | 2025-04-08 11:26 | PTCARENOTE ---
Update with wildlife manager and critical care team thru am. Patient ambulating to bathroom and chair supervision only. No c/c at this time. Accu data trends ongoing. Insulin presently 169 on 2unints and hour. IVF bolus as ordered, IVF as ordered. Will
follow up 1200 labs as ordered. Update difficulty with lab specimens as noted. Now adding oral H2O intake. Patient tolerating and thankful to be able to drink. Watching tv and sleeping when undisturbed. Update daughter at [facility] as per patient
request. Continue hourly rounds will follow up with critical care team.
[2025-04-08 12:22] LABS: Glucose - Point of Care 164 mg/dl (70-99)
[2025-04-08 13:08] LABS: Blood Urea Nitrogen 7 mg/dl (9-20); Carbon Dioxide 17 mmol/L (22-30); Chloride 109 mmol/L (98-107); Estimated Creatinine Clearance 123 ml/min; Glucose 157 mg/dl (70-99); Potassium 4.6 mmol/L (3.5-5.1); Sodium 136 mmol/L (135-145); Triglycerides 1895 mg/dl (10-149); eGFR > 60.00
[2025-04-08 15:00] LABS: Glycohemoglobin (HgbA1c) 9.7 % (4.0-5.6)
[2025-04-08 15:17] LABS: Glucose - Point of Care 183 mg/dl (70-99)
[2025-04-08 16:55] LABS: Glucose - Point of Care 175 mg/dl (70-99)
[2025-04-08 17:15] LABS: Blood Urea Nitrogen 5 mg/dl (9-20); Calcium 8.3 mg/dl (8.4-10.2); Carbon Dioxide 15 mmol/L (22-30); Chloride 110 mmol/L (98-107); Estimated Creatinine Clearance > 125 ml/min; Glucose 168 mg/dl (70-99); Potassium 4.5 mmol/L (3.5-5.1); Sodium 134 mmol/L (135-145); eGFR > 60.00
--- NOTE | 2025-04-08 17:29 | PTCARENOTE ---
Update [facility] team. IVF and insulin presently at 2units/hr. May continue at 2 hour accu data readings, labs follow up as ordered. Review Ion Gap 9 present labs as noted and reviewed. Update with patient and . Continues to ambulate room,
bathroom privileges, Call francisco in use as needed. No c/c to offer.
[2025-04-08] MEDS: PROTONIX 40 MG PO (17:54)
[2025-04-08] MEDS: LOVENOX 40 MG SC (17:54)
[2025-04-08 20:27] LABS: Glucose - Point of Care 185 mg/dl (70-99)
[2025-04-08 20:42] LABS: Blood Urea Nitrogen 5 mg/dl (9-20); Calcium 8.5 mg/dl (8.4-10.2); Carbon Dioxide 17 mmol/L (22-30); Chloride 109 mmol/L (98-107); Estimated Creatinine Clearance 123 ml/min; Glucose 175 mg/dl (70-99); Potassium 4.4 mmol/L (3.5-5.1); Sodium 135 mmol/L (135-145); eGFR > 60.00
[2025-04-08 22:16] LABS: Glucose - Point of Care 180 mg/dl (70-99)
--- NOTE | 2025-04-09 00:05 | PTCARENOTE ---
Pt alert/oriented/cooperative,ambulating to bathroom with minimal assist. PRN dilaudid for pain as needed. Afebrile. NSR on monitor. Pulses palpable, no edema. IV line flushed/patent. Continues on IVF and insulin gtt as ordered, q2h accu checks.
Room air (CPAP machine when asleep). NPO with sips of water/ice chips. Voids in bathroom. Will monitor
[2025-04-09 00:27] LABS: Glucose - Point of Care 191 mg/dl (70-99)
[2025-04-09 02:13] LABS: Glucose - Point of Care 165 mg/dl (70-99)
[2025-04-09] MEDS: D5/0.45%NSS with KCL 20 MEQ 1000 IV ×2 (03:37→08:18)
[2025-04-09] MEDS: NOVOLIN R INSULIN INFUSION 100 IV (03:38)
[2025-04-09 03:50] VITALS: BP 122/84
[2025-04-09] MEDS: DILAUDID 0.25 MG IV (03:54)
--- NOTE | 2025-04-09 04:00 | PTCARENOTE ---
No change in previous assessment. Labs sent and pending. Will monitor
[2025-04-09 04:19] LABS: Hematocrit 37.8 % (39.0-52.0); Hemoglobin 13.9 g/dL (13.0-18.0); Mean Corp Hgb Conc. 36.8 g/dL (33.0-37.0); Mean Corpuscular Hgb 33.6 pg (27.0-31.0); Mean Corpuscular Volume 91.3 fL (80.0-94.0); Mean Platelet Volume 11.2 fL (7.4-10.4); Platelet Count 130 10^3/uL (130-400); Red Blood Cell Count 4.14 10^6/uL (4.70-6.10); Red Cell Dist. Width 13.5 % (11.5-14.5); White Blood Cell Count 8.1 10^3/uL (4.8-10.8)
[2025-04-09 04:34] LABS: Blood Urea Nitrogen 4 mg/dl (9-20); Calcium 8.4 mg/dl (8.4-10.2); Carbon Dioxide 18 mmol/L (22-30); Chloride 110 mmol/L (98-107); Estimated Creatinine Clearance > 125 ml/min; Glucose 153 mg/dl (70-99); Potassium 4.1 mmol/L (3.5-5.1); Sodium 135 mmol/L (135-145); eGFR > 60.00
[2025-04-09 05:01] LABS: Triglycerides 1289 mg/dl (10-149)
[2025-04-09 06:15] LABS: Glucose - Point of Care 191 mg/dl (70-99)
--- NOTE | 2025-04-09 07:03 | W.PN.HOSP.TC ---
Addendum entered and electronically signed by Maryanne Magaña MD 04/09/25 13:47:
I saw and evaluated the patient independently. I reviewed the resident�s note and agree with findings and plan as documented by Dr. Fritz.
GENERAL: well developed, well nourished, male in no apparent distress
HEENT: NC/AT--no O2 requirements
HEART: regular rate and rhythm, +S1, +S2
LUNGS : clear to auscultation bilaterally
ABDOM: soft, nontender, nondistended, + bowel sounds
EXT: no cyanosis, clubbing, or edema
NEUROLOGIC: grossly intact
acute AGAP metabolic acidosis--multifactorial due to Diabetic Ketoacidosis (likely triggered by Pancreatitis), alcoholic ketoacidosis, pancreatitis---apprec payroll associate--AGAP closed x 2--can transition insulin drip to SC insulin, adjust--diabetic
diet--recheck BMP off insulin drip--consider restarting Jardiance-- HGB A1C 9.7--may need to restart Ozempic too
Acute Pancreatitis, suspect related to elevated triglycerides as patient stopped Repatha about 6 weeks ago--cont aggressive IVF
HLD--with elevated triglycerides--needs to restart Repatha--not on statins--will need low fat, diabetic diet when allowed to take PO
ETOH use--admits to 3 beers daily--cont MSAS--no signs of withdrawal--instructed to quit
Coronary Artery Disease s/p Stent in 2019--Resume low dose aspirin
Essential Hypertension--Continue lisinopril
Psoriatic Arthritis--Patient maintained on Stelara as outpatient
Obstructive Sleep Apnea--Continue home CPAP
DVT proph-- Lovenox
Code Status-- Full Code
Original Note:
Today's Communication/Plan
-
- transition to subq insulin
- repeat BMP
- trial diabetic diet
Assessment / Plan
Assessment / Plan
Assessment:
64yo M pmh CAD, HTN, HLD, NIDDM, GERD, psoriatic arthritis, ZENOBIA who was admitted for recurrent pancreatitis and DKA. Pt reports stopping repatha and his ozempic 6 weeks ago. Lipase 3000 elevated, AG (21) metabolic acidosis
Plan:
DKA
NIDDM
AGMA
- likely secondary to pancreatitis and poor compliance w NIDDM regimen
- BHB 7.3
- transition to subq insulin
- trial diabetic diet
Recurrent pancreatitis
- likely secondary to hypertriglyceridemia
- triglycerides >2625 initially --> dropping
- pain control
- antiemetics
- IVF
Alcohol use disorder
- cessation counseling
ZENOBIA
- home CPAP
Psoriatic arthritis
- hold stelara
GERD
- cont ppi
HTN
- cont home lisinopril
Gout
- cont home allopurinol
Diet: diabetic
DVT ppx: lovenox
Code status: FULL CODE
Anticipated Discharge: Within 24 hours
Subjective/Interval History
-
Date of Service: April 09, 2025
No acute overnight events.
Objective Data
-
Labs:
Laboratory Results
04/08/25 04/09/25 04/09/25
20:16 00:00 03:36
WBC 8.1
Hgb 13.9
Hct 37.8 L
Plt Count 130
Sodium 135 Cancelled 135
Potassium 4.4 Cancelled 4.1
Chloride 109 H Cancelled 110 H
Carbon Dioxide 17 L Cancelled 18 L
BUN 5 L Cancelled 4 L
Creatinine 0.7 Cancelled 0.6 L
Glucose 175 H Cancelled 153 H
Calcium 8.5 Cancelled 8.4
Vital Signs:
Vital Signs
Temp Pulse Resp BP Pulse Ox
98.4 F 61 18 122/84 98
04/09/25 03:27 04/09/25 06:30 04/09/25 06:30 04/09/25 03:50 04/08/25 20:51
I&O
04/08/25 04/09/25 04/10/25
06:59 06:59 06:59
Intake Total 7752 / 7752
Output Total 1410 / 1410 850 / 850
Balance -1410 / -1410 6902 / 6902
Review of Systems
-
History Source: Patient
Constitutional: Reports No Symptoms
Respiratory: Reports No Symptoms
Cardiac: Reports No Symptoms
Abdomen/GI: Reports No Symptoms
Musculoskeletal: Reports No Symptoms
Neuro: Reports No Symptoms
Physical Exam
-
General: Well Developed and Well Nourished
HEENT: Normocephalic and Atraumatic
Respiratory: Clear to Auscultation and Non Labored Respirations
Cardiac: Regular Rhythm and S1/S2
GI: Soft, Nontender, Nondistended and Normal Bowel Sounds
Musculoskeletal: No Clubbing, No Cyanosis and No Edema
Skin: Warm and Dry
Neuro: Awake, Alert and Oriented
--- NOTE | 2025-04-09 08:00 | PTCARENOTE ---
report received from previous RN at changes of shift. Pt AAOX3, ambulating in room independently. IVF and insulin gtt per orders. SR /SB on telemetry heart rate in 50-60s. pulses palpable, no edema. pt on room air, sat 99% lung sounds clear. NPO
with water/ice chips. hypoactive bowel sounds. voiding in bathroom without difficulty. see worklist for full nursing assessment. pt updated on plan of care.
[2025-04-09 08:13] VITALS: BP 126/88
[2025-04-09] MEDS: ZESTRIL 5 MG PO (08:15)
[2025-04-09] MEDS: ASPIR LOW (ENTERIC COATED) 81 MG PO (08:15)
[2025-04-09] MEDS: ZYLOPRIM 150 MG PO (08:16)
[2025-04-09 08:21] LABS: Glucose - Point of Care 172 mg/dl (70-99)
[2025-04-09 08:32] LABS: Lipase 578 U/L (23-300)
[2025-04-09 10:24] LABS: Glucose - Point of Care 165 mg/dl (70-99)
[2025-04-09] MEDS: LANTUS 0.1 UNITS SC (10:25)
[2025-04-09] MEDS: NOVOLOG FLEXPEN 6 UNITS SC ×3 (10:25→17:25)
[2025-04-09] MEDS: LR 1000 IV (12:25)
[2025-04-09 12:26] LABS: Glucose - Point of Care 208 mg/dl (70-99)
--- NOTE | 2025-04-09 12:30 | PTCARENOTE ---
vitals stable. insulin gtt dced per orders. no changes in assessment noted.
[2025-04-09 12:33] VITALS: BP 151/112
[2025-04-09 12:34] VITALS: BP 141/76
[2025-04-09 16:25] VITALS: BP 134/83
--- NOTE | 2025-04-09 16:30 | PTCARENOTE ---
vitals stable. labs drawn and sent. pt ambulated in room without difficulty. tolerating diet. no changes in assessment. pt anxious to be discharged
[2025-04-09 16:52] LABS: Blood Urea Nitrogen 11 mg/dl (9-20); Calcium 8.9 mg/dl (8.4-10.2); Carbon Dioxide 17 mmol/L (22-30); Chloride 109 mmol/L (98-107); Estimated Creatinine Clearance > 125 ml/min; Glucose 149 mg/dl (70-99); Potassium 4.3 mmol/L (3.5-5.1); Sodium 133 mmol/L (135-145); eGFR > 60.00
--- NOTE | 2025-04-09 17:07 | W.DCSUMMARY ---
Addendum entered and electronically signed by Maryanne Magaña MD 04/09/25 18:04:
Read, reviewed, and agree. See same day progress note for additional details. Time spent coordinating care, DC planning, review of DC plan of care with resident, transition of care, review of records in EMR, med rec, consults, notes, d/w
consultants, nursing, family, and CM = 34 minutes
Original Note:
Discharge Summary
Discharge Data
Date of Admission: 04/07/25
Date of Discharge: 04/09/25
-
Pending Results: No
Hospital Course
Discharging Physician : Dr. Roseann Fritz, Dr. Maryanne Magaña
Disposition : Home
Primary care physician : Buddy Scott
Principal Discharge diagnosis : Acute pancreatitis, Diabetic Ketoacidosis
Chronic Discharge diagnosis : CAD, HTN, HLD, NIDDM, GERD, psoriatic arthritis, ZENOBIA
Hospital Course : 64yo M pmh CAD, HTN, HLD, NIDDM, GERD, psoriatic arthritis, ZENOBIA who was admitted for recurrent pancreatitis and DKA. Pt reports stopping repatha and his ozempic 6 weeks ago. Lipase 3000 elevated, AG (21) metabolic acidosis.
Initially, triglycerides >2625. HbA1c 9.7. Started on insulin infusion w IVF. IVF transitioned to contain KCl and dextrose as BS improved. Pt tolerating sips of water. AG closed x4 before transitioning to subq insulin. TG improved to 1289, lipase
improved to 578. Pt hemodynamically stable, afebrile. Recommend pt continue with his repatha.
Important imaging findings :
CT abdomen/pelvis:
CT findings compatible with pancreatitis involving the head of the pancreas. No evidence for macroscopic pancreatic necrosis. No evidence of a focal collection.
Thickening of the wall the second portion of the duodenum which is likely reactive duodenitis.
Coronary artery calcifications are seen. Please correlate with symptoms of and risk factors for coronary artery disease, with further workup as clinically appropriate.
Fatty infiltration of the liver.
Two 2 mm nephroliths in the lower pole the left kidney. No evidence for ureteral calculus.
Procedure findings : n/a
Discharge Plan
-
Patient Disposition: Home (Routine Discharge)
Discharge Diagnosis/Procedures: Acute pancreatitis, Diabetic Ketoacidosis
Condition: Fair
Diet: Diabetic, Carb Controlled
Activity: As tolerated
Driving Restrictions: As prior to admission
Bathing Restrictions: None
Instructions: Acute pancreatitis, Diabetic ketoacidosis, Diabetic ketoacidosis - Discharge instructions, Pancreatitis - Discharge instructions
Referrals:
Buddy Scott, [Family Provider] - in one week
Additional Discharge Medication Instructions: Tonight, take 10units insulin glargine.
Start 20units per day in the evenings tomorrow
Prescriptions:
New
insulin aspart U-100 100 unit/mL (3 mL) Insulin Pen
6 unit SC AC Qty: 15 0RF
insulin glargine [Lantus Solostar U-100 Insulin] 100 unit/mL (3 mL) Insulin Pen
20 unit SC HS Qty: 5 0RF
Continued
allopurinol 300 MG tablet
150 mg PO DAILY
ustekinumab [Stelara] 90 mg/mL Syringe
90 mg SC Q12W
omeprazole 20 mg Capsule,Delayed Release(Dr/Ec)
20 mg PO QPM
celecoxib 100 mg capsule
100 mg PO BID
tadalafil 20 mg tablet
20 mg PO PRN PRN (Reason: Erectile Dysfunction)
Jardiance 25 mg tablet
25 mg PO DAILY
lisinopril 5 mg tablet
5 mg PO DAILY
Discharge Orders:
Discharge Patient (As Directed); Ordered 04/09/25
Ordered By: Roseann Fritz
Discharge Date and Time
Print Language: DIVEHI
[2025-04-09 17:09] LABS: Glucose - Point of Care 160 mg/dl (70-99)
[2025-04-09] MEDS: PROTONIX PO (17:15)
[2025-04-09] MEDS: LOVENOX SC (17:15)
[2025-04-09] MEDS: LR IV (17:27)
== END 2025-04-09 18:03 | disposition home or self-care (01) | DRG 438 ==
LOC: ICU 22:49
PROVIDERS: Nurse Practitioner Primary Care; Physician Assistant Medical; ADMITTING PHYSICIAN Internal Medicine; ATTENDING PHYSICIAN Internal Medicine; CONSULT PHYSICIAN Internal Medicine; EMERGENCY PHYSICIAN Emergency Medicine; FAMILY PHYSICIAN Family Medicine
DX: K85.90 Acute pancreatitis without necrosis or infection, unspecified (principal); E11.10 Type 2 diabetes mellitus with ketoacidosis without coma; G47.33 Obstructive sleep apnea (adult) (pediatric); Z87.891 Personal history of nicotine dependence; E78.00 Pure hypercholesterolemia, unspecified; E78.1 Pure hyperglyceridemia; I10 Essential (primary) hypertension; L40.50 Arthropathic psoriasis, unspecified; K21.9 Gastro-esophageal reflux disease without esophagitis; I25.10 Atherosclerotic heart disease of native coronary artery without angina pectoris; Z79.4 Long term (current) use of insulin; Z79.899 Other long term (current) drug therapy; Z91.199 Patient's noncompliance with other medical treatment and regimen due to unspecified reason
CPT/HCPCS: 74177; 80048; 80053; 80076; 81003; 81015; 82010; 82805; 82962; 83036; 83690; 84478; 85025; 85027; 93005; 99291; Q9967

== ENCOUNTER → 2025-06-15 08:29 | Outpatient (REF) | payer OTHER, SELFPAY ==
[2025-06-15 09:58] LABS: Hematocrit 47.1 % (39.0-52.0); Hemoglobin 15.9 g/dL (13.0-18.0); Mean Corp Hgb Conc. 33.8 g/dL (33.0-37.0); Mean Corpuscular Volume 93.3 fL (80.0-94.0); Nucleated Red Blood Cells % 0 % (-); Platelet Count 206 10^3/uL (130-400); Red Cell Dist. Width 13.0 % (11.5-14.5)
[2025-06-15 10:31] LABS: HDL Cholesterol 37 mg/dl; LDL Cholesterol, Calculated 140 mg/dl; Very Low Density Lipoprotein 45 mg/dl (0-30)
[2025-06-15 10:34] LABS: ALT (SGPT) 38 U/L (0-50); AST (SGOT) 26 U/L (17-59); Albumin 4.5 g/dl (3.5-5.0); Alkaline Phosphatase 55 U/L (38-126); Blood Urea Nitrogen 19 mg/dl (9-20); Calcium 9.1 mg/dl (8.4-10.2); Carbon Dioxide 22 mmol/L (22-30); Chloride 108 mmol/L (98-107); Glucose 129 mg/dl (70-99); Potassium 4.5 mmol/L (3.5-5.1); Sodium 139 mmol/L (135-145); Total Protein 7.0 g/dl (6.3-8.2); Uric Acid 7.1 mg/dl (3.5-8.5); eGFR > 60.00
[2025-06-15 10:48] LABS: Microalbumin, Random Urine 1.4 mg/dl (0.6-1.7)
[2025-06-15 11:22] LABS: C-Reactive Protein < 5.00 mg/L (0.0-10.00)
[2025-06-15 12:27] LABS: Glycohemoglobin (HgbA1c) 6.8 % (4.0-5.6)
[2025-06-15 13:39] LABS: PSA, Total - Screen 0.34 ng/ml (0.0-4.0)
[2025-06-17 10:57] LABS: Amylase 88 U/L (30-110); Lipase 140 U/L (23-300)
== END ==
LOC: REG 08:29
PROVIDERS: ATTENDING PHYSICIAN Internal Medicine
DX: L40.50 Arthropathic psoriasis, unspecified (principal); Z51.81 Encounter for therapeutic drug level monitoring; Z00.01 Encounter for general adult medical examination with abnormal findings; E11.9 Type 2 diabetes mellitus without complications; M1A.9XX0 Chronic gout, unspecified, without tophus (tophi); Z12.5 Encounter for screening for malignant neoplasm of prostate
CPT/HCPCS: 36415; 80053; 80061; 82043; 82150; 83036; 83690; 84443; 84550; 85025; 85652; 86140; G0103

== ENCOUNTER → 2025-10-21 10:14 | Outpatient (REF) | payer OTHER, SELFPAY ==
[2025-10-21 12:01] LABS: ALT (SGPT) 40 U/L (0-50); AST (SGOT) 28 U/L (17-59); Albumin 4.4 g/dl (3.5-5.0); Alkaline Phosphatase 62 U/L (38-126); Blood Urea Nitrogen 20 mg/dl (9-20); Calcium 9.0 mg/dl (8.4-10.2); Carbon Dioxide 23 mmol/L (22-30); Chloride 105 mmol/L (98-107); Glucose 122 mg/dl (70-99); HDL Cholesterol 31 mg/dl; LDL Cholesterol, Calculated 72 mg/dl; Lipase 396 U/L (23-300); Potassium 4.3 mmol/L (3.5-5.1); Sodium 136 mmol/L (135-145); Total Protein 7.0 g/dl (6.3-8.2); Very Low Density Lipoprotein 47 mg/dl (0-30); eGFR > 60.00
[2025-10-21 12:17] LABS: Amylase 103 U/L (30-110)
[2025-10-21 13:53] LABS: Glycohemoglobin (HgbA1c) 6.6 % (4.0-5.9)
== END ==
LOC: REG 10:14
PROVIDERS: ATTENDING PHYSICIAN Internal Medicine Endocrinology, Diabetes & Metabolism
DX: E11.21 Type 2 diabetes mellitus with diabetic nephropathy (principal); K85.90 Acute pancreatitis without necrosis or infection, unspecified
CPT/HCPCS: 36415; 80053; 80061; 82150; 83036; 83690